=== PATIENT | female | born 1985 | race Caucasian/White ===

== ENCOUNTER 2016-10-26 10:03 | Emergency (ER) | payer OTHER, MEDICAID ==
[~2016-10-26] VITALS: Ht 160 cm; Wt 80.0 kg
[~2016-10-26 10:03] MED LIST: NAPR500 PO; Z.0.NO CURRENT MEDS
[2016-10-26 10:12] VITALS: BP 141/94; PULSE 92; RESP 16; TEMP 98.1; O2SAT 98
[2016-10-26] MEDS ORDERED: ALL5TAB5 PO (10:30)
[2016-10-26] MEDS ORDERED: IBUP200C PO (10:30)
[2016-10-26] MEDS ORDERED: ACET1CAP18 PO (10:30)
[2016-10-26] MEDS ORDERED: AMOX500C PO (10:40)
--- NOTE | 2016-10-26 10:40 | PD ---
HPI Chief Complaint: Cold / Flu Symptoms Time Seen by Provider: 10:16 Travel History International Travel<30 days: No Contact w/Intl Traveler<30days: No Traveled to known affect area: No History of Present Illness HPI This 31-year-old female says she been coughing for several weeks. She does smoke cigarettes. She has had a hacking cough. Is having some pain in her neck which is aggravated by coughing. She thinks that she sprained her neck coughing. She has not had fever. PFSH Past Medical History Medical History: Denies Significant Hx Hx Anticoagulant Therapy: No Diabetes: No Diminished Hearing: No Gastrointestinal Disorders: No ?: Not : 1 Para: 1 Past Surgical History Oral Surgery: Yes (ORIF MANDIBLE) Other Surgery: No Social History Alcohol Use: No Tobacco Use: Yes (one pack a day) Substance Use: No Allergies-Medications (Allergen,Severity, Reaction): Coded Allergies: No Known Allergies (Verified , 10/26/16) Reported Meds & Prescriptions Reported Meds & Active Scripts Active Reported All Day Allergy D 12 HR (Cetirizine-Pseudoephedrine 12 HR) 5-120 Mg Tab 1 Tab PO BID Ibuprofen 200 Mg Cap 200 Mg PO Q6H PRN Tylenol (Acetaminophen) 325 Mg Cap 325 Mg PO Q6H PRN Review of Systems General / Constitutional: No: Fever, Chills Eyes: No: Diploplia, Blurred Vision HENT: Positive: Neck Stiffness, Neck Pain, No: Headaches, Vertigo Cardiovascular: No: Chest Pain or Discomfort Respiratory: Positive: Cough Gastrointestinal: No: Nausea, Vomiting Genitourinary: No: Frequency, Dysuria Musculoskeletal: Positive: Pain, No: Myalgias Skin: No Rash, No Itching Physical Exam Narrative GENERAL: Well-developed female SKIN: Focused skin assessment warm/dry. HEAD: Atraumatic. Normocephalic. EYES: Pupils equal and round. No scleral icterus. No injection or drainage. ENT: No nasal bleeding or discharge. Mucous membranes pink and moist. Posterior pharynx is erythematous without exudate NECK: Trachea midline. No JVD. She does have some pain with movement of her neck. Movement is restricted CARDIOVASCULAR: Regular rate and rhythm. No murmur appreciated. RESPIRATORY: No accessory muscle use. Occasional rhonchi Breath sounds equal bilaterally. GASTROINTESTINAL: Abdomen soft, non-tender, nondistended. Hepatic and splenic margins not palpable. MUSCULOSKELETAL: No obvious deformities. No clubbing. No cyanosis. No edema. NEUROLOGICAL: Awake and alert. No obvious cranial nerve deficits. Motor grossly within normal limits. Normal speech. PSYCHIATRIC: Appropriate mood and affect; insight and judgment normal. Data Data Last Documented VS Vital Signs Date Time Temp Pulse Resp B/P Pulse Ox O2 Delivery O2 Flow Rate FiO2 10/26/16 10:12 98.1 92 16 141/94 98 MDM Medical Decision Making Medical Screen Exam Complete: Yes Emergency Medical Condition: Yes Medical Record Reviewed: Yes Differential Diagnosis Differential includes viral URI, bronchitis, Narrative Course Patient has taken multiple [id number] medications without any relief. She is a smoker and I will prescribe antibiotics. She does have some neck pain which she attributes to vigorous coughing and has been taking Tylenol and ibuprofen with some relief pain medicine was offered but she did not want anything additional Diagnosis Primary Impression: Acute bronchitis Scripts Amoxicillin 500 Mg [id number] Mg PO TID 10 Days Ref 0 Prov:Harrison Simpson MD 10/26/16 Disposition: 01 DISCHARGE HOME Condition: Stable Harrison Simpson MD October 26, 2016 10:40
== END 2016-10-26 10:47 | disposition home or self-care (01) ==
LOC: PHEFT 10:03
DX: J20.9 Acute bronchitis, unspecified (principal); F17.200 Nicotine dependence, unspecified, uncomplicated
CPT/HCPCS: 99283

== ENCOUNTER 2017-01-19 10:36 | Emergency (ER) | payer OTHER, MEDICAID ==
[~2017-01-19] VITALS: Ht 162.6 cm; Wt 88.7 kg
[~2017-01-19 10:36] MED LIST changes: +ACET1CAP18 PO; +ALL5TAB5 PO; +AMOX500C PO; +IBUP200C PO; -NAPR500 PO; -Z.0.NO CURRENT MEDS
[2017-01-19 10:49] VITALS: BP 162/95; PULSE 100; RESP 20; TEMP 98.4
[2017-01-19] MEDS ORDERED: KETOROLAC TROMETHAMINE 60 MG/2 ML (IM) VIAL IM ONE (11:00)
[2017-01-19] MEDS ORDERED: AUGM875T3 PO (11:04)
[2017-01-19] MEDS ORDERED: NAPR500 PO (11:04)
--- NOTE | 2017-01-19 11:04 | PD ---
HPI Chief Complaint: ENT Complaint Time Seen by Provider: 10:51 Travel History International Travel<30 days: No Contact w/Intl Traveler<30days: No Traveled to known affect area: No History of Present Illness HPI So 31-year-old woman who presents to the emergency department complaining of left ear pain. She states in October she had a little bit trouble with it. Then about a week ago she started getting worsening pain tenderness swelling and drainage from the ear. She went to an outside hospital who diagnosed with an ear infection, put her on eardrops, oral amoxicillin, and some tramadol. She states that the drainage from the ear. There is pain is still significant and radiates into the area skull behind the ear as well as into her jaw. She does not have a history of diabetes. No fevers. She never really had trouble before. She otherwise had been feeling generally well and healthy. History Past Medical History LMP: 01/14 : 1 Para: 1 Social History Alcohol Use: No Tobacco Use: Yes (one pack a day) Allergies-Medications (Allergen,Severity, Reaction): Coded Allergies: No Known Allergies (Verified , 10/26/16) Reported Meds & Prescriptions Reported Meds & Active Scripts Active Amoxicillin 500 Mg Cap 500 Mg PO TID 10 Days Reported All Day Allergy D 12 HR (Cetirizine-Pseudoephedrine 12 HR) 5-120 Mg Tab 1 Tab PO BID Ibuprofen 200 Mg Cap 200 Mg PO Q6H PRN Tylenol (Acetaminophen) 325 Mg Cap 325 Mg PO Q6H PRN Review of Systems Except as stated in HPI: all other systems reviewed are Neg Physical Exam Narrative GENERAL: Well-appearing 31-year-old woman, no acute distress. SKIN: Focused skin assessment warm/dry. HEAD: Atraumatic. Normocephalic. EYES: Pupils equal and round. No scleral icterus. No injection or drainage. ENT: No nasal bleeding or discharge. Mucous membranes pink and moist. Left TM shows some debris in the ear canal but no significant swelling. There is a lot of tenderness both with traction on the helix and with palpation of the tragus. She has a little bit tenderness over the mastoid. There is no erythema redness swelling or bulging of the ear. She has some tenderness in the frontal sinuses well. Oropharyngeal exam is unremarkable. There is no dental tenderness to percussion on that side. NECK: Trachea midline. No JVD. No significant adenopathy in the neck. CARDIOVASCULAR: Warm and well perfused. RESPIRATORY: Normal rate and effort. MUSCULOSKELETAL: No obvious deformities. Data Data Last Documented VS Vital Signs Date Time Temp Pulse Resp B/P Pulse Ox O2 Delivery O2 Flow Rate FiO2 01/19/17 10:49 98.4 100 20 162/95 Orders Ketorolac Inj (Toradol Inj) (01/19/17 11:00) [facility] Medical Decision Making Medical Screen Exam Complete: Yes Emergency Medical Condition: Yes Differential Diagnosis Otitis externa, otitis media, otitis media with effusion, mastoiditis, mastoid effusion, other Narrative Course Medical decision-making the parents a 31-year-old woman who had otitis externa he still having pain. Pain to feel bit deeper, she has tenderness in her ear, as well as progressing to her frontal sinuses and her mastoid sinus. She has no fevers, bulging of the ear, she is nontoxic. Diagnosis Primary Impression: Acute otitis media with effusion of left ear Additional Instructions: Stop amoxicillin take Augmentin as prescribed. Add Naprosyn to tramadol for pain. Return immediately to the emergency department for any bulging in the ear, fevers, worsening pain, or any other new or worsening symptoms. Med/Other Pt SpecificInfo: Prescription(s) given Scripts Amoxicillin-Clavulanate (Augmentin)875-125 Mg Tab1 Tab PO BID 10 Days Ref 0 Prov:Patrick Aaron MD 01/19/17 Naproxen (Naprosyn)500 Mg [id number] Mg PO BID PRN (PAIN SCALE 1 TO 10) #20 TAB Prov:Patrick Aaron MD 01/19/17 Disposition: 01 DISCHARGE HOME Condition: Stable Patrick Aaron MD Jan 19, 2017 11:04
== END 2017-01-19 11:49 | disposition home or self-care (01) ==
LOC: PHEFT 10:36
DX: H65.192 Other acute nonsuppurative otitis media, left ear (principal); F17.200 Nicotine dependence, unspecified, uncomplicated
CPT/HCPCS: 96372; 99284; J1885